=== PATIENT | male | born 1995 | race Caucasian/White ===

== ENCOUNTER 2016-10-25 19:08 | Emergency (ER) | payer OTHER ==
[~2016-10-25] VITALS: Ht 185.4 cm; Wt 138.3 kg
[~2016-10-25 19:08] MED LIST: AMOXICILLIN500 M2 PO; ZOFRAN ODT4 MG SL
[2016-10-25] MEDS ORDERED: VENTOLIN H0.09 MG/AC INH (19:21)
[2016-10-25 19:37] LABS: BILIRUBIN NEGATIVE (NEGATIVE); BLOOD 1+ (NEGATIVE); CLARITY CLEAR (CLEAR); COLOR YELLOW (YELLOW); GLUCOSE NEGATIVE (NEGATIVE); KETONE NEGATIVE (NEGATIVE); LEUKO ESTERASE NEGATIVE (NEGATIVE); NITRITE NEGATIVE (NEGATIVE); PH 5.5 (5.0-9.0); PROTEIN TRACE (NEGATIVE); SPECIFIC GRAVITY >= 1.030 (1.005-1.030); UROBILINOGEN 0.2 E.U./dl (0.2-1.0)
[2016-10-25 20:03] LABS: MUCOUS TRACE; URINE REFLEX COMMENT YES (NO)
== END 2016-10-25 19:33 | disposition home or self-care (01) ==
LOC: ED 19:08
PROVIDERS: Nurse Practitioner Family
DX: N34.2 Other urethritis (principal); R03.0 Elevated blood-pressure reading, without diagnosis of hypertension; F17.200 Nicotine dependence, unspecified, uncomplicated; F32.9 Major depressive disorder, single episode, unspecified; Z88.8 Allergy status to other drugs, medicaments and biological substances